=== PATIENT | female | born 1995 | race Caucasian/White ===

== ENCOUNTER 2017-12-25 09:35 | Emergency (ER) | payer SELFPAY ==
[2017-12-25 09:50] VITALS: TEMP 97.8
[2017-12-25] MEDS ORDERED: MORPHINE SULFATE INJ 10 MG/ML VIAL IV ONE (09:55)
[2017-12-25] MEDS ORDERED: ONDANSETRON INJ 4 MG/2 ML VIAL IV ONE (09:56)
--- NOTE | 2017-12-25 12:04 | ED.PDOC ---
History of Present Illness - General Chief Complaint: Abdominal Pain Stated Complaint: RUQ pain Time Seen by Provider: 12/25/17 09:55 Information Source: patient Exam Limitations: no limitations - History of Present Illness Abdominal Pain Onset Location: RUQ, epigastric Pain Radiation: no radiation Quality: moderate Timing/Duration: days - TWO DAYS Associated Symptoms: denies symptoms, back pain, chest pain Review of Systems - Review of Systems Constitutional: States: no symptoms reported EENTM: States: no symptoms reported Respiratory: States: no symptoms reported Cardiology: States: no symptoms reported Gastrointestinal/Abdominal: States: abdominal pain Musculoskeletal: States: no symptoms reported Skin: States: no symptoms reported Neurological: States: no symptoms reported Endocrine: States: no symptoms reported Hematologic/Lymphatic: States: no symptoms reported Past Medical History (General) - Patient Medical History Hx Stroke: No Hx Asthma: Yes Hx Congestive Heart Failure: No Hx Diabetes: No Surgical History: no surgical history - Vaccination History Hx Influenza Vaccination: No - Social History Hx Tobacco Use: Yes - Female History Patient is a Female of Child Bearing Age (10 -59 yrs old): Yes Family Medical History - Family History Mother Family History: Unknown Living Status: Unknown Physical Exam - Physical Exam General Appearance: Alert, Comfortable Eyes, Ears, Nose, Throat Exam: PERRL/EOMI, normal ENT inspection, TMs normal, pharynx normal Neck: non-tender, full range of motion, supple Respiratory: chest non-tender, lungs clear, normal breath sounds Cardiovascular/Chest: normal peripheral pulses, regular rate, rhythm, no edema, no gallop, no JVD Gastrointestinal/Abdominal: normal bowel sounds, non tender, soft, no organomegaly, no pulsatile mass, distended Rectal Exam: deferred Extremity: normal range of motion, non-tender, normal inspection 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 CBC, LIPASE, CMP ARE NORMAL. CT ABDOMEN: SMALL PERICARDIAC CYST, FATTY LIVER. Departure - Departure Clinical Impression: Abdominal pain Qualifiers: Abdominal location: right upper quadrant Qualified Code(s): R10.11 - Right upper quadrant pain Time of Disposition: 12:19 Disposition: Discharge to Home or Self Care Condition: Good Departure Forms: ED Discharge - Pt. Copy, Patient Portal Self Enrollment Diet: other - LOW FAT DIET Prescriptions: Tramadol HCl 50 mg PO Q6HR 5 Days tab Home Medications: Ambulatory Orders Albuterol Inhaler [Ventolin Hfa Inhaler] 1 puff INH PRN 12/25/17 Tramadol HCl 50 mg PO Q6HR 5 Days tab 12/25/17
--- NOTE | 2017-12-25 12:04 | CT ---
EXAM DESCRIPTION: CT ABDOMEN AND PELVIS WITH CONTRAST CLINICAL HISTORY: ABDOMINAL PAIN-RUP AND EPIGASTRIUM COMPARISON: None Available. TECHNIQUE: CT of the abdomen and pelvis are performed during IV bolus administration of 100 mL of Optiray 320. Oral contrast media is administered as well. FINDINGS: In the lower chest, the lung bases are clear. Heart size is normal. Density in the right cardiophrenic angle region measures 1.9 x [address] density measurements ranging from 7-26 Hounsfield units. This may be a pericardial cyst. A low density lymph node could have a similar appearance. MRI may be helpful to differentiate a cystic from a solid lesion. CT abdomen Mildly decreased density of the liver suggests mild fatty infiltration. Spleen is large measuring 15.2 cm on diagonal measurement. Otherwise the liver, pancreas, gallbladder, adrenal glands, stomach and kidneys are unremarkable in appearance. No inflammation around the pancreas. No renal stones or hydronephrosis. No bowel dilatation to suggest obstruction. No free air or free fluid. CT pelvis Appendix appears normal and extends posterior to the right colon to the lower right subhepatic space. No inflammation around the cecum or terminal ileum or sigmoid colon. Bladder and distal ureters are negative for stones. Normal enhancement of pelvic vessels. No inguinal or lower pelvic adenopathy. Uterus and ovaries appear normal. Bone window images are negative for fracture or lytic lesion. Coronal and sagittal reformatted images confirm the findings. Liver length of 23 cm is mildly increased. Splenic length is mildly increased at 13.5 cm. IMPRESSION: Hepatosplenomegaly with mild hepatic steatosis. Right paracardiac lesion, most likely cystic. See above. This exam was performed according to our departmental dose-optimization program, which includes automated exposure control, adjustment of the mA and/or kV according to patient size and/or use of iterative reconstruction technique. Total DLP equals 1518.77 mGycm. Electronically signed by: Dickson Peng MD 12/25/2017 12:03 PM CDT
[2017-12-25 12:58] VITALS: BP 146/91; O2SAT 100
== END 2017-12-25 12:33 | disposition home or self-care (01) ==
LOC: ER 09:35
DX: R10.11 Right upper quadrant pain (principal)
CPT/HCPCS: 36415; 74177; 80053; 81001; 83690; 84703; 85025; J2270; J2405

== ENCOUNTER → 2018-02-25 | Outpatient (CLI) | payer OTHER | LOC: LAB.O 16:45 | PROVIDERS: ATTEND General Practice | DX: Z00.00 Encounter for general adult medical examination without abnormal findings (principal); E66.01 Morbid (severe) obesity due to excess calories ==

== ENCOUNTER 2018-05-25 08:02 | Emergency (ER) | payer SELFPAY ==
[2018-05-25 08:10] VITALS: O2SAT 98
[2018-05-25] MEDS ORDERED: HYDROcodone 10MG/APAP 325MG 1 EA TAB ONE (08:37)
[2018-05-25] MEDS ORDERED: HYDROcodone 10MG/APAP 325MG 1 EA TAB PO ONE (08:44)
--- NOTE | 2018-05-25 09:55 | RAD ---
One view chest 2 view abdomen. Indication: ruq pain 3d Comparison: None. Impression: Heart size normal. Lungs clear. No free air. Bowel gas pattern nonspecific. No abnormal calcifications. No acute osseous abnormality. Electronically signed by: Simeon Deal MD 05/25/2018 9:54 AM CDT
[2018-05-25] MEDS ORDERED: CIPROFLOXACIN 500 MG TAB PO ONE (10:09)
[2018-05-25] MEDS ORDERED: cefTRIAXone SODIUM 1 GM VIAL IM ONE (10:09)
--- NOTE | 2018-05-25 10:21 | ED.PDOC ---
History of Present Illness - General Chief Complaint: Abdominal Pain Time Seen by Provider: 05/25/18 08:03 Source: patient Exam Limitations: no limitations - History of Present Illness Initial Comments: the patient is a 23-year-old female presented emergency room with progressive discomfort to the right upper quadrant and flank for the last 3 days. Mild nausea but no vomiting. No worse with oral intake. No fever. No definite urinary symptoms. She had a similar episode about [address] scan at that time was negative for any acute pathology. She does have right upper quadrant discomfort palpation as well as right-sided costovertebral angle tenderness. No shortness of breath. No cough. Timing/Duration: other - 3 days Severity: moderate Improving Factors: nothing Worsening Factors: eating, movement Associated Symptoms: loss of appetite, malaise Allergies/Adverse Reactions: Allergies NO KNOWN ALLERGY Allergy (Verified 12/25/17 09:51) Home Medications: Ambulatory Orders Albuterol Inhaler [Ventolin Hfa Inhaler] 1 puff INH PRN 12/25/17 Tramadol HCl 50 mg PO Q6HR 5 Days tab 12/25/17 Amoxicillin & Pot Clavulanate [Augmentin Tab] 875 mg PO BID #20 tab 05/25/18 Ciprofloxacin [Cipro] 500 mg PO BID #20 tab 05/25/18 Tramadol HCl 50 mg PO Q8HR PRN #20 tab 05/25/18 Review of Systems - Review of Systems Constitutional: States: malaise EENTM: States: no symptoms reported Respiratory: States: no symptoms reported Cardiology: States: no symptoms reported Gastrointestinal/Abdominal: States: nausea Genitourinary: States: pain Musculoskeletal: States: back pain Skin: States: no symptoms reported Neurological: States: no symptoms reported Endocrine: States: no symptoms reported All other Systems: No Change from Baseline Past Medical History (General) - Patient Medical History Hx Stroke: No Hx Asthma: Yes Hx Congestive Heart Failure: No Hx Diabetes: No Hx Cancer: No Hx Hepatitis C: No Surgical History: no surgical history - Vaccination History Hx Tetanus, Diphtheria Vaccination: Yes - 2017 Hx Influenza Vaccination: Yes Hx Pneumococcal Vaccination: No Immunizations Up to Date: No - Social History Hx Tobacco Use: No Hx Chewing Tobacco Use: No Hx Alcohol Use: No Hx Substance Use: No Hx Substance Use Treatment: No Hx Depression: No Feels Threatened In Home Enviroment: No Feels Threatened In a Relationship: No Hx Physical Abuse: No Hx Emotional Abuse: No Hx Suspected Abuse: No - Female History Patient is a Female of Child Bearing Age (10 -59 yrs old): Yes Patient : No Family Medical History - Family History Mother Family History: Unknown Living Status: Unknown Physical Exam - Physical Exam General Appearance: Alert, Comfortable, No apparent distress Eye Exam: bilateral normal Ears, Nose, Throat: hearing grossly normal, normal ENT inspection, normal pharynx Neck: full range of motion, supple Respiratory: lungs clear, normal breath sounds, no respiratory distress, no accessory muscle use Cardiovascular/Chest: normal peripheral pulses, regular rate, rhythm, no edema Peripheral Pulses: radial,right: 2+, radial,left: 2+, dorsalis pedis,right: 2+, dorsalis pedis,left: 2+ Gastrointestinal/Abdominal: soft, other - mild right upper quadrant discomfort to palpation Rectal Exam: deferred Back Exam: CVA tenderness (R) Extremity: normal range of motion, non-tender, normal inspection, no pedal edema , normal capillary refill 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 She does have a urinary tract infection so I believe she does have early pyelonephritis on the right. Urine will be cultured. The patient is going to receive double coverage. She received a dose of Rocephin and ciprofloxacin here. I'm going to place her on Augmentin and ciprofloxacin as an outpatient. She does also need to take an over-the- counter Pepcid daily while she is taking these medications to help prevent stomach upset. She needs to increase her fluid intake. She needs to follow back up with her primary care doctor later this week. She will be written for tramadol for as needed use for additional pain control and she can take Motrin as well as if needed. There is a possibility that she may be having some biliary colic in addition to the problems above. She had a CT scan of the abdomen and pelvis that was essentially negative 5 months ago. There is no elevation of liver function tests and her pain actually seems to be more posterior and lateral than would be expected with a gallbladder issue. If pain fails to improve with above measures then further evaluation of the gallbladder may be warranted. increasing fiber and water intake as well as reducing fat intake are recommended in general. ER warnings were given. - Results/Orders Results/Orders: Laboratory Tests 05/25/18 05/25/18 05/25/18 08:54 08:58 08:58 WBC 5.1 RBC 4.95 Hgb 13.6 Hct 41.4 MCV 83.6 MCH 27.4 MCHC 32.8 L RDW 14.5 Plt Count 195 MPV 10.1 Absolute Neuts (auto) 3.60 Absolute Lymphs (auto) 1.20 Absolute Monos (auto) 0.30 Absolute Eos (auto) 0.00 Absolute Basos (auto) 0.00 Neutrophils % 69.5 Lymphocytes % 23.2 Monocytes % 6.1 Eosinophils % 0.7 L Basophils % 0.5 Sodium 136 Potassium 3.9 Chloride 100 L Carbon Dioxide 30 Anion Gap 9.9 L BUN 11 Creatinine 0.64 BUN/Creatinine Ratio 17.2 Random Glucose 89 Serum Osmolality 270.8 L Lactic Acid Calcium 9.2 Total Bilirubin 0.5 AST 19 ALT 24 Alkaline Phosphatase 66 Creatine Kinase 86 CK-MB (CK-2) 0.9 CK-MB (CK-2) % Not Reportable Troponin I < 0.02 Serum Total Protein 7.6 Albumin 3.7 Globulin 3.9 H Albumin/Globulin Ratio 0.9 L Amylase 26 L Lipase 24 TSH 2.23 Urine Color Yellow Urine Appearance Clear Urine pH 7.0 Ur Specific [place] 1.015 Urine Protein Negative Urine Glucose (UA) Negative Urine Ketones Negative Urine Blood Negative Urine Nitrite Negative Urine Bilirubin Negative Urine Urobilinogen 0.2 Ur Leukocyte Esterase Small H Urine RBC 0 Urine WBC 5-10 H Ur Epithelial Cells 10-20 Urine Bacteria 4+ H Urine HCG, Qual 05/25/18 05/25/18 08:58 08:58 WBC RBC Hgb Hct MCV MCH MCHC RDW Plt Count MPV Absolute Neuts (auto) Absolute Lymphs (auto) Absolute Monos (auto) Absolute Eos (auto) Absolute Basos (auto) Neutrophils % Lymphocytes % Monocytes % Eosinophils % Basophils % Sodium Potassium Chloride Carbon Dioxide Anion Gap BUN Creatinine BUN/Creatinine Ratio Random Glucose Serum Osmolality Lactic Acid 0.9 Calcium Total Bilirubin AST ALT Alkaline Phosphatase Creatine Kinase CK-MB (CK-2) CK-MB (CK-2) % Troponin I Serum Total Protein Albumin Globulin Albumin/Globulin Ratio Amylase Lipase TSH Urine Color Urine Appearance Urine pH Ur Specific [place] Urine Protein Urine Glucose (UA) Urine Ketones Urine Blood Urine Nitrite Urine Bilirubin Urine Urobilinogen Ur Leukocyte Esterase Urine RBC Urine WBC Ur Epithelial Cells Urine Bacteria Urine HCG, Qual Negative acute abdominal series is negative for acute pathology. - EKG/XRAY/CT CT Ordered: No CT Interpretation Call Back: No Departure - Departure Clinical Impression: Pyelonephritis Disposition: Discharge to Home or Self Care Condition: Fair Departure Forms: ED Discharge - Pt. Copy, Patient Portal Self Enrollment Instructions: Urinary Tract Infection, Adult (DC) Diet: low fat, low cholesterol Activity: increase activity as tolerated Referrals: Newton Freeman MD [Primary Care Provider] - 1-5 Days Prescriptions: Tramadol HCl 50 mg PO Q8HR PRN #20 tab PRN Reason: Moderate Pain Amoxicillin & Pot Clavulanate [Augmentin Tab] 875 mg PO BID #20 tab Ciprofloxacin [Cipro] 500 mg PO BID #20 tab Home Medications: Ambulatory Orders Albuterol Inhaler [Ventolin Hfa Inhaler] 1 puff INH PRN 12/25/17 Tramadol HCl 50 mg PO Q6HR 5 Days tab 12/25/17 Amoxicillin & Pot Clavulanate [Augmentin Tab] 875 mg PO BID #20 tab 05/25/18 Ciprofloxacin [Cipro] 500 mg PO BID #20 tab 05/25/18 Tramadol HCl 50 mg PO Q8HR PRN #20 tab 05/25/18 Additional Instructions: the patient is a 23-year-old female presenting to the emergency room with right- sided abdominal and flank pain. She does have a urinary tract infection so I believe she does have early pyelonephritis on the right. Urine will be cultured. The patient is going to receive double coverage. She received a dose of Rocephin and ciprofloxacin here. I'm going to place her on Augmentin and ciprofloxacin as an outpatient. She does also need to take an over-the- counter Pepcid daily while she is taking these medications to help prevent stomach upset. She needs to increase her fluid intake. She needs to follow back up with her primary care doctor later this week. She will be written for tramadol for as needed use for additional pain control and she can take Motrin as well as if needed. There is a possibility that she may be having some biliary colic in addition to the problems above. She had a CT scan of the abdomen and pelvis that was essentially negative 5 months ago. There is no elevation of liver function tests and her pain actually seems to be more posterior and lateral than would be expected with a gallbladder issue. If pain fails to improve with above measures then further evaluation of the gallbladder may be warranted. increasing fiber and water intake as well as reducing fat intake are recommended in general. ER warnings were given.
[2018-05-25 10:39] VITALS: BP 134/76; TEMP 98.6
== END 2018-05-25 10:40 | disposition home or self-care (01) ==
LOC: ER 08:02
DX: N12 Tubulo-interstitial nephritis, not specified as acute or chronic (principal); J45.909 Unspecified asthma, uncomplicated
CPT/HCPCS: 36415; 74019; 80053; 81001; 81025; 82150; 82550; 82553; 83605; 83690; 84443; 84484; 85025; 87077; 87086; 87186; J0696

== ENCOUNTER 2018-08-25 07:41 | Emergency (ER) | payer SELFPAY ==
[2018-08-25 07:55] VITALS: TEMP 97.5
--- NOTE | 2018-08-25 08:02 | ED.PDOC ---
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 SIMILAR PAIN SHE HAS ASTHMA NOW ANY MOVEMENT MAKES THE PAIN WORSE HOWEVER NO LOSS OF BLADDER OR BOWEL CONTROL SHE HAS DIFFICULTY IN AMBULATING HER FAMILY HAD TO ASSIST HER TO COME HERE - History of Present Illness Timing/Duration: getting worse Severity: moderate Improving Factors: immobilization Worsening Factors: nothing Associated Symptoms: denies symptoms Allergies/Adverse Reactions: Allergies NO KNOWN ALLERGY Allergy (Verified 08/25/18 07:55) Home Medications: Ambulatory Orders Albuterol Inhaler [Ventolin Hfa Inhaler] 1 puff INH PRN 12/25/17 Methocarbamol [Robaxin] 750 mg PO Q8HRS #30 tab 08/25/18 Naproxen [Naprosyn] 500 mg PO Q8HRS #30 tab 08/25/18 Review of Systems - Review of Systems Constitutional: States: no symptoms reported EENTM: States: no symptoms reported Respiratory: States: no symptoms reported, wheezing Cardiology: States: no symptoms reported Gastrointestinal/Abdominal: States: no symptoms reported Genitourinary: States: no symptoms reported Musculoskeletal: States: no symptoms reported Skin: States: no symptoms reported Neurological: States: no symptoms reported Endocrine: States: no symptoms reported Hematologic/Lymphatic: States: no symptoms reported Past Medical History (General) - Patient Medical History Hx Stroke: No Hx Asthma: Yes Hx Congestive Heart Failure: No Hx Diabetes: No Hx Cancer: No Hx Hepatitis C: No - Vaccination History Hx Tetanus, Diphtheria Vaccination: Yes - 2017 Hx Influenza Vaccination: Yes Hx Pneumococcal Vaccination: No - Social History Hx Tobacco Use: No Hx Chewing Tobacco Use: No Hx Alcohol Use: No Hx Substance Use: No Hx Substance Use Treatment: No Hx Depression: No Hx Physical Abuse: No Hx Emotional Abuse: No Hx Suspected Abuse: No - Female History Patient : No Family Medical History - Family History Mother Family History: Unknown Living Status: Unknown Physical Exam - Physical Exam General Appearance: Alert, Anxious, Obvious distress Eye Exam: bilateral normal Ears, Nose, Throat: hearing grossly normal, normal ENT inspection Neck: non-tender, full range of motion, supple Respiratory: chest non-tender, lungs clear, normal breath sounds, no respiratory distress, no accessory muscle use Cardiovascular/Chest: normal peripheral pulses, regular rate, rhythm, no edema, no gallop, no JVD, no murmur Gastrointestinal/Abdominal: normal bowel sounds, non tender, soft Back Exam: muscle spasm Extremity: non-tender, normal inspection, no pedal edema 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, no motor/sensory deficits, alert, oriented x 3 Skin Exam: normal color, warm/dry Progress - Results/Orders Results/Orders: 8 48 am Patient reports not much releif from Morphine and Phenergan Will give Toradol & Norflex [address] LUMBAR SPINE REPORT SUGGEST A DISC PROTRUSION AT L5 S1 TO THE LEFT THIS WAS DISCUSSED WITH PATIENT SUGGEST REST ANALGESICS AND MUSCLE RELAXANTS 'FOLLOW UP WITH PCP IF SYMPTOMS PERSIST FOR FURTHER NEURO WORK UP Departure - Departure Clinical Impression: Lumbar back pain with radiculopathy affecting left lower extremity Time of Disposition: 09:47 Disposition: Discharge to Home or Self Care Condition: Good Departure Forms: ED Discharge - Pt. Copy, Patient Portal Self Enrollment Instructions: DI for Low Back Pain, DI for Back Pain With Sciatica Diet: resume usual diet Referrals: Newton Freeman MD [Primary Care Provider] - 1-2 Weeks Prescriptions: Methocarbamol [Robaxin] 750 mg PO Q8HRS #30 tab Naproxen [Naprosyn] 500 mg PO Q8HRS #30 tab Home Medications: Ambulatory Orders Albuterol Inhaler [Ventolin Hfa Inhaler] 1 puff INH PRN 12/25/17 Methocarbamol [Robaxin] 750 mg PO Q8HRS #30 tab 08/25/18 Naproxen [Naprosyn] 500 mg PO Q8HRS #30 tab 08/25/18
[2018-08-25] MEDS ORDERED: MORPHINE SULFATE INJ 10 MG/ML VIAL IM ONE (08:04)
[2018-08-25] MEDS ORDERED: PROMETHAZINE HCL INJ 25 MG/ML VIAL IM ONE (08:05)
[2018-08-25] MEDS ORDERED: ONDANSETRON INJ 4 MG/2 ML VIAL IV ONE (08:05)
[2018-08-25] MEDS ORDERED: ORPHENADRINE CITRATE 30 MG/ML AMP IM ONE (08:42)
[2018-08-25] MEDS ORDERED: KETOROLAC TROMETHAMINE INJ 60 MG/2 ML VIAL IM ONE (08:42)
--- NOTE | 2018-08-25 09:25 | CT ---
EXAM DESCRIPTION: Lumbar Spine CLINICAL HISTORY: 23 years, Female, severe back pain COMPARISON: December 25, 2017 TECHNIQUE: Lumbar CT with thin-section axial imaging with reconstructed MPR images reviewed as well. This exam was performed according to our departmental dose-optimization program, which includes automated exposure control, adjustment of the mA and/or kV according to patient size and/or use of iterative reconstruction technique. FINDINGS: CT lumbar spine is limited in image quality by the patient's large body size. Vertebral and disc height is maintained with normal alignment. This bony spinal canal is adequate. Disc contours in the thoracolumbar junction and upper lumbar spine are essentially normal and concave from T12-L1 through L3-4. A flat posterior contour at L4-5 is within the limits of normal with mild facet arthropathy. At L5-S1 very slight convexity of the disc contour is noted with essentially normal alignment. A tiny amount of prominence to the left of midline suggesting minimal left parasagittal disc protrusion but significant neural compression or a large herniation is not apparent. The bony posterior elements appear intact with no evidence of pars defect or severe facet arthropathy. IMPRESSION: 1. Essentially normal bony appearance of the lumbar spine with preserved vertebral and disc height and normal-appearing posterior elements. Adequate bony canal is noted. 2. Normal disc contours from T12-L1 through L4-5. 3. Very mild annular prominence L5-S1 with minimal asymmetric left-sided prominence suggesting a very small left parasagittal disc protrusion without definite neural compression. 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
[2018-08-25 10:07] VITALS: BP 101/66; O2SAT 100
== END 2018-08-25 10:07 | disposition home or self-care (01) ==
LOC: ER 07:41
DX: M54.16 Radiculopathy, lumbar region (principal); J45.909 Unspecified asthma, uncomplicated
CPT/HCPCS: 72131; J1885; J2270; J2360; J2550

== ENCOUNTER → 2018-09-14 | Outpatient (CLI) | payer MEDICAID ==
--- NOTE | 2018-09-15 13:21 | US ---
EXAM DESCRIPTION: Breast,Left: Ultrasound CLINICAL HISTORY: 23 yearsFemaleBREAST LUMP LEFT. Strong family history of breast cancer. COMPARISON: None. TECHNIQUE: Transcutaneous scanning of the left breast utilizing deleon-scale and Doppler modes. Scanning performed by the allergist/pediatric pulmonologist and Dr. Aparicio. FINDINGS: Scanning of the left breast 3 cm from the nipple 8:00 to 10:00 sectors. Predominantly fibroglandular elements with minimal fatty echotexture. No dominant solid mass or distinct cyst. No parenchymal edema or large calcifications. No overlying skin changes. No abnormal vascularity. Consider bilateral diagnostic digital breast tomosynthesis, with strong family history. IMPRESSION: BI-RADS CATEGORY: 0 - INCOMPLETE- Need additional imaging evaluation. FOLLOW-UP: Recall for additional imaging: Bilateral diagnostic digital breast tomosynthesis. The FINDINGS and the FOLLOW-UP plan were reviewed in person with the patient after the examination. Written communication explaining the IMPRESSION and FOLLOW-UP will be mailed to the patient and referring care provider. Electronically signed by: Kamari Aparicio MD 09/15/2018 1:19 PM [facility]
== END ==
LOC: US 14:18
PROVIDERS: ATTEND Nurse Practitioner Family
DX: N63.22 Unspecified lump in the left breast, upper inner quadrant (principal)

== ENCOUNTER → 2018-09-29 | Outpatient (CLI) | payer MEDICAID ==
--- NOTE | 2018-09-30 11:11 | MAM ---
EXAM DESCRIPTION: 3D Diagnostic, Bilateral: Digital Mammography CLINICAL HISTORY: 23 yearsFemaleABN FINDINGS . Palpable lump left breast. Negative on breast ultrasound. No personal history of breast cancer. Mother and maternal grandmother with breast cancer. Paternal grandmother with breast cancer. Mother's sister with breast cancer. Childbirth. Premenopausal. No HRT. Lifetime risk of developing breast cancer (Tyrer-Cuzick model) percentage is not calculated due to age of patient under 35 years old. COMPARISON: Targeted left breast ultrasound 09/14/2018... TECHNIQUE: Bilateral LM, MLO, and CC projection full-field images, digital mammographic tomosynthesis technique. Bilateral 2-D digital full-field MLO images. CAD not utilized. FINDINGS: The breast parenchymal density pattern is: Scattered areas of fibroglandular density. No skin thickening or nipple retraction skin marker on the anterior lower inner quadrant left breast where mass was palpated. No mammographic abnormality at this location. No focal, stellate mass or density, focal asymmetry , and no suspicious microcalcifications. IMPRESSION: Benign exam. BIRAD CATEGORY: 2 BENIGN FINDINGS. RECOMMENDATIONS: FOLLOW UP: Routine digital bilateral mammographic screening, one year interval from September 2018.. Consider genetic screening and MRI scan of the bilateral breasts without and with IV gadolinium. Please see below*. Written communication explaining the IMPRESSION and follow-up, will be mailed to the patient and referring health care provider. *According to the [employer], yearly mammograms are recommended starting at age 40 and continuing as long as a woman is in good health. Any breast change noted on a breast self-exam should be reported promptly to the patient's healthcare provider. Breast MRI is recommended for women with an approximately 20-25% or greater lifetime risk of breast cancer, including women with a strong family history of breast or ovarian cancer and women who have been treated for Hodgkin's disease. A negative mammographic report should not delay tissue diagnosis in patients with significant clinical history or physical findings. Extremely dense breast tissue limits the sensitivity of digital mammography. Electronically signed by: Kamari Aparicio MD 09/30/2018 11:08 AM STUDENT SERVICES COUNSELOR
== END ==
LOC: US 14:00
PROVIDERS: ATTEND Nurse Practitioner Family
DX: R92.8 Other abnormal and inconclusive findings on diagnostic imaging of breast (principal)
CPT/HCPCS: 77066; G0279

== ENCOUNTER 2018-10-06 22:27 | Emergency (ER) | payer MEDICAID ==
[2018-10-06 22:40] VITALS: TEMP 98
[2018-10-06] MEDS ORDERED: LIDOCAINE 1% W/ EPINEPHRINE 20 ML VIAL INJ ONE (22:46)
[2018-10-06] MEDS ORDERED: IODOFORM 1/4 INCH 1 EA BTTL TOP ONE (22:47)
[2018-10-06] MEDS ORDERED: CHLORHEXIDINE GLUCONATE 4 % 15 ML UD TOP ONE (22:50)
--- NOTE | 2018-10-06 23:13 | ED.PDOC ---
History of Present Illness - General Chief Complaint: Skin/Abrasion/Tear Stated Complaint: abcess on perineum Time Seen by Provider: 10/06/18 22:28 Source: patient Exam Limitations: no limitations - History of Present Illness Initial Comments: Patient presents with an abscess on the left perineal fold for three days. She says it started to leak blood and pus today. She has had an abscess before in the same area many years ago. No fevers. No other complaints. Timing/Duration: other - 3 days Severity: moderate Improving Factors: nothing Worsening Factors: nothing Associated Symptoms: denies symptoms Allergies/Adverse Reactions: Allergies NO KNOWN ALLERGY Allergy (Verified 08/25/18 07:55) Home Medications: Ambulatory Orders Albuterol Inhaler [Ventolin Hfa Inhaler] 1 puff INH PRN 12/25/17 Methocarbamol [Robaxin] 750 mg PO Q8HRS #30 tab 08/25/18 Naproxen [Naprosyn] 500 mg PO Q8HRS #30 tab 08/25/18 Sulfa/Trimeth 800/160 (Ds) Tab [Bactrim DS] 1 tablet PO BID #19 tab 10/06/18 Review of Systems - Review of Systems Constitutional: States: no symptoms reported EENTM: States: no symptoms reported Respiratory: States: no symptoms reported Cardiology: States: no symptoms reported Gastrointestinal/Abdominal: States: no symptoms reported Genitourinary: States: no symptoms reported Musculoskeletal: States: no symptoms reported Skin: States: see HPI Neurological: States: no symptoms reported Endocrine: States: no symptoms reported Hematologic/Lymphatic: States: no symptoms reported Past Medical History (General) - Patient Medical History Hx Seizures: No Hx Stroke: No Hx Dementia: No Hx Asthma: Yes Hx of COPD: No Hx Cardiac Disorders: No Hx Congestive Heart Failure: No Hx Pacemaker: No Hx Hypertension: No Hx Diabetes: No Hx Gastroesophageal Reflux: No Hx Renal Disease: No Hx Cancer: No Hx Hepatitis C: No Surgical History: no surgical history - Vaccination History Hx Tetanus, Diphtheria Vaccination: Yes - 2017 Hx Influenza Vaccination: Yes Hx Pneumococcal Vaccination: No - Social History Hx Tobacco Use: No Hx Chewing Tobacco Use: No Hx Alcohol Use: No Hx Substance Use: No Hx Substance Use Treatment: No Hx Depression: No Hx Physical Abuse: No Hx Emotional Abuse: No Hx Suspected Abuse: No - Female History Patient is a Female of Child Bearing Age (10 -59 yrs old): Yes Patient : No Family Medical History - Family History Mother Family History: Unknown Living Status: Unknown Physical Exam - Physical Exam General Appearance: Alert Respiratory: lungs clear, normal breath sounds Cardiovascular/Chest: normal peripheral pulses, regular rate, rhythm Gastrointestinal/Abdominal: normal bowel sounds, non tender, soft Skin Exam: other - 3 cm non-erythmatic abscess on left anterior perineal fold. TTP. Dried blood present. There is a central eschar from drainage. Progress - Progress Progress: 10/06/18 23:13 Area was prepped and draped in a sterile fashion. 6 cc of lidocaine with epinephrine injected at the circumference of the wound site and excellent local anesthesia obtained. #11 blade used to cut a 1 cm incision in the center of the abscess. small amount of blood and no prurulence obtained. Loculations broken up with curved hemostats. Culture obtained. 30 cc of sterile NS used to irrigate the abscess. Packed with approximately 10 cm of sterile strip gauze. Area was clean, dry, and hemostatic upon completion. Patient tolerated procedure well. RX for Bactrim DS bid x 10 days given. First dose given here. Patient has follow up appointment with her pcp early next week and she was encouraged to keep the appointment for a wound check. Care instructions given. E.R. warnings given. Questions were elicited and answered. Patient voiced understanding and agreement with the plan. Departure - Departure Clinical Impression: Abscess Disposition: Discharge to Home or Self Care Condition: Good Departure Forms: ED Discharge - Pt. Copy, Patient Portal Self Enrollment Diet: resume usual diet Activity: increase activity as tolerated Referrals: Newton Freeman MD [Primary Care Provider] - 1-2 Weeks Prescriptions: Sulfa/Trimeth 800/160 (Ds) Tab [Bactrim DS] 1 tablet PO BID #19 tab Home Medications: Ambulatory Orders Albuterol Inhaler [Ventolin Hfa Inhaler] 1 puff INH PRN 12/25/17 Methocarbamol [Robaxin] 750 mg PO Q8HRS #30 tab 08/25/18 Naproxen [Naprosyn] 500 mg PO Q8HRS #30 tab 08/25/18 Sulfa/Trimeth 800/160 (Ds) Tab [Bactrim DS] 1 tablet PO BID #19 tab 10/06/18 Additional Instructions: See your regular doctor next week to check healing of the wound. Take your prescription as directed. Return to the E.R. for increasing wound size, pus, or increasing pain. Return for a temperature above 100.3.
[2018-10-06] MEDS ORDERED: SULFA/TRIMETH 800/160 (DS) TAB 1 EA TAB PO ONE (23:17)
[2018-10-06 23:27] VITALS: BP 157/84; O2SAT 97
== END 2018-10-06 23:27 | disposition home or self-care (01) ==
LOC: ER 22:27
DX: L02.215 Cutaneous abscess of perineum (principal); J45.909 Unspecified asthma, uncomplicated

== ENCOUNTER 2018-10-12 08:59 | Emergency (ER) | payer SELFPAY ==
--- NOTE | 2018-10-12 09:16 | ED.PDOC ---
History of Present Illness - General Chief Complaint: Abdominal Pain Stated Complaint: N/V/D;RUQ pain Time Seen by Provider: 10/12/18 09:01 Information Source: patient Exam Limitations: no limitations - History of Present Illness Initial Comments: Tameka Velez 23 y/o female stated that she had multiple episodes of N/V/D since last night and sharp RUQ pain .She stated had multiple family members ill with same symptoms.Had CT-abd/p-12/25/2017-result showed hepatosplenomegaly,hepatic steatosis;right paracardiac cyst Abdominal Pain Onset Location: RUQ Pain Radiation: no radiation Quality: moderate, sharpness Timing/Duration: 7-24 hours Improving Factors: nothing Worsening Factors: nothing Associated Symptoms: diarrhea, nausea/vomiting Review of Systems - Review of Systems Constitutional: States: no symptoms reported EENTM: States: no symptoms reported Respiratory: States: no symptoms reported Cardiology: States: no symptoms reported Gastrointestinal/Abdominal: States: see HPI Genitourinary: States: no symptoms reported All other Systems: Reviewed and Negative, No Change from Baseline Past Medical History (General) - Patient Medical History Hx Seizures: No Hx Stroke: No Hx Dementia: No Hx Asthma: Yes Hx of COPD: No Hx Cardiac Disorders: No Hx Congestive Heart Failure: No Hx Pacemaker: No Hx Hypertension: No Hx Diabetes: No Hx Gastroesophageal Reflux: No Hx Renal Disease: No Hx Cancer: No Hx Hepatitis C: No Surgical History: no surgical history - Vaccination History Hx Tetanus, Diphtheria Vaccination: Yes - 2017 Hx Influenza Vaccination: Yes Hx Pneumococcal Vaccination: No - Social History Hx Tobacco Use: No Hx Chewing Tobacco Use: No Hx Alcohol Use: No Hx Substance Use: No Hx Substance Use Treatment: No Hx Depression: No Hx Physical Abuse: No Hx Emotional Abuse: No Hx Suspected Abuse: No - Female History Patient is a Female of Child Bearing Age (10 -59 yrs old): Yes Hx Last Menstrual Period: 09/11/18 Patient : No Family Medical History - Family History Mother Family History: Unknown Living Status: Unknown Physical Exam - Physical Exam General Appearance: Alert, Comfortable, No apparent distress Eyes, Ears, Nose, Throat Exam: normal ENT inspection, pharynx normal Neck: non-tender, supple, normal inspection Respiratory: chest non-tender, lungs clear, normal breath sounds Cardiovascular/Chest: normal peripheral pulses, regular rate, rhythm, no murmur Peripheral Pulses: No deficit Gastrointestinal/Abdominal: soft, tenderness - ruq no [place] sign;no peritoneal signs Back Exam: no CVA tenderness, no vertebral tenderness Extremity: no pedal edema, no calf tenderness Neurologic: alert, oriented x 3 Skin Exam: normal color, warm/dry Lymphatic: no adenopathy Progress - Progress Progress: 10/12/18 10:11 Vital Signs - 8 hr 10/12/18 09:14 Temperature 98.9 F Pulse Rate [ 93 H Right Radial] Respiratory 20 Rate Blood Pressure 120/77 [Right Arm] O2 Sat by Pulse 97 Oximetry 10/12/18 10:59 Unable to give stool sample ;No N/V/D since she was in ER - Results/Orders Results/Orders: 10/12/18 09:16 IV Care:Saline Lock per Protoc QSHIFT HCG,QUALITATIVE URINE Stat URINALYSIS Stat 10/12/18 09:47 CLOSTRIDIUM DIFFICILE AG/TOXIN Urgent Laboratory Results - last 24 hr 10/12/18 10/12/18 09:30 09:30 WBC 7.0 RBC 5.09 Hgb 14.2 Hct 41.8 MCV 82.3 MCH 27.8 MCHC 33.8 RDW 14.2 Plt Count 203 MPV 9.7 Absolute Neuts (auto) 6.20 Absolute Lymphs (auto) 0.40 L Absolute Monos (auto) 0.30 Absolute Eos (auto) 0.00 Absolute Basos (auto) 0.00 Neutrophils % 88.5 H Lymphocytes % 6.3 L Monocytes % 4.5 Eosinophils % 0.5 L Basophils % 0.2 Sodium 136 Potassium 4.0 Chloride 103 Carbon Dioxide 24 Anion Gap 13.0 BUN 14 Creatinine 0.71 BUN/Creatinine Ratio 19.7 Random Glucose 106 H Serum Osmolality 272.8 L Calcium 8.8 Total Bilirubin 0.6 AST 17 ALT 25 Alkaline Phosphatase 68 Serum Total Protein 7.9 Albumin 3.7 Globulin 4.2 H Albumin/Globulin Ratio 0.9 L Discuss all test with patient Departure - Departure Clinical Impression: Nausea vomiting and diarrhea Abdominal pain Qualifiers: Abdominal location: right upper quadrant Qualified Code(s): R10.11 - Right upper quadrant pain Time of Disposition: 11:01 Disposition: Discharge to Home or Self Care Condition: Fair Departure Forms: ED Discharge - Pt. Copy, Patient Portal Self Enrollment Instructions: Viral Gastroenteritis, Viral Gastroenteritis, Adult (DC), [place] Diet Referrals: [place],Newton Larry, MD [Primary Care Provider] - 1-2 Weeks Prescriptions: Promethazine W/Codeine Syr [Phenergan With Codeine Syrup] 10 ml PO TID PRN #120 ml PRN Reason: Pain Home Medications: Ambulatory Orders Albuterol Inhaler [Ventolin Hfa Inhaler] 1 puff INH PRN 12/25/17 Etonogestrel [Nexplanon] 68 mg TD DAILY 10/12/18 Phentermine HCl 37.5 mg PO DAILY 10/12/18 Promethazine W/Codeine Syr [Phenergan With Codeine Syrup] 10 ml PO TID PRN #120 ml 10/12/18 Additional Instructions: AVOID GREASY/SPICY FOODS UNTIL BETTER;Return to ER as needed;follow up with primary Md 14 Oct 2018 for recheck as needed
[2018-10-12] MEDS ORDERED: SODIUM CHLORIDE 0.9% 1000ML 1,000 ML IVS ONE (09:22)
[2018-10-12] MEDS ORDERED: PROCHLORPERAZINE INJ 10 MG/2 ML VIAL IV ONE (09:22)
[2018-10-12] MEDS ORDERED: MORPHINE SULFATE INJ 10 MG/ML VIAL IV ONE (09:22)
[2018-10-12 11:19] VITALS: BP 112/90; TEMP 98.8; O2SAT 98
== END 2018-10-12 11:25 | disposition home or self-care (01) ==
LOC: ER 08:59
DX: R11.2 Nausea with vomiting, unspecified (principal); R19.7 Diarrhea, unspecified; R10.11 Right upper quadrant pain; J45.909 Unspecified asthma, uncomplicated
CPT/HCPCS: 80053; 85025; J0780; J2270; J7030

== ENCOUNTER 2020-03-08 05:58 | Emergency (ER) | payer OTHER ==
--- NOTE | 2020-03-08 06:40 | ED.PDOC ---
History of Present Illness - History of Present Illness Initial Comments: 25 F EGA 8w1d by LMP presents to ED c/o vaginal bleeding in with clots. Pt has been having mild vaginal spotting for 4 days but tonight developed suprapubic abdominal pain and pelvic cramping with increased vaginal bleeding and passage of clots. Pt endorses associated nausea without vomiting. Denies h/o similar sx's. No alleviating/aggravating factors. Denies CP, SOB, cough, vomiting, diarrhea, dysuria, vaginal discharge, f/c. Pt is without any further complaints. LMP: 01/11/2020 <Rangel Cadena - Last Filed: 03/08/20 06:46> <[place] - Last Filed: 03/08/20 09:46> - General Chief Complaint: RN ENTEROSTOMAL Problem Stated Complaint: vaginal bleeding, Pg Time Seen by Provider: 03/08/20 06:10 - History of Present Illness Allergies/Adverse Reactions: Allergies NO KNOWN ALLERGY Allergy (Verified 10/12/18 09:24) Home Medications: Ambulatory Orders Albuterol Inhaler [Ventolin Hfa Inhaler] 1 puff INH PRN 12/25/17 Etonogestrel [Nexplanon] 68 mg TD DAILY 10/12/18 Phentermine HCl 37.5 mg PO DAILY 10/12/18 Promethazine W/Codeine Syr [Phenergan With Codeine Syrup] 10 ml PO TID PRN #120 ml 10/12/18 Acetaminophen [Tylenol] 650 mg PO Q6H PRN #30 tab 03/08/20 Review of Systems - Review of Systems Constitutional: Denies: chills, fever EENTM: Denies: nose congestion, throat pain Respiratory: Denies: cough, short of breath Cardiology: Denies: chest pain, edema, palpitations Gastrointestinal/Abdominal: States: abdominal pain, nausea. Denies: diarrhea, vomiting Genitourinary: States: other - vaginal bleeding with clots, denies vaginal discharge. Denies: dysuria, frequency Musculoskeletal: Denies: back pain, muscle pain Skin: Denies: change in color, lesions, rash Neurological: States: other - denies dizziness/lightheadedness. Denies: heada dorothy Hematologic/Lymphatic: Denies: easy bleeding <Rangel Cadena - Last Filed: 03/08/20 06:46> Past Medical History (General) - Patient Medical History Hx Seizures: No Hx Stroke: No Hx Dementia: No Hx Asthma: Yes Hx of COPD: No Hx Cardiac Disorders: No Hx Congestive Heart Failure: No Hx Pacemaker: No Hx Hypertension: No Hx Diabetes: No Hx Gastroesophageal Reflux: No Hx Renal Disease: No Hx Cancer: No Hx Hepatitis C: No Hx MRSA: No - Vaccination History Hx Tetanus, Diphtheria Vaccination: Yes - 2017 Hx Influenza Vaccination: Yes Hx Pneumococcal Vaccination: No - Social History Hx Tobacco Use: No Hx Chewing Tobacco Use: No Hx Alcohol Use: No Hx Substance Use: No Hx Substance Use Treatment: No Hx Depression: No Hx Physical Abuse: No Hx Emotional Abuse: No Hx Suspected Abuse: No - Female History Hx Last Menstrual Period: 09/11/18 Patient : No <Rangel Cadena - Last Filed: 03/08/20 06:46> Family Medical History - Family History Mother Family History: Unknown Living Status: Unknown <Rangel Cadena - Last Filed: 03/08/20 06:46> Physical Exam - Physical Exam General Appearance: Alert, Comfortable, No apparent distress, Other - Non-toxic. Morbid BMI. Eye Exam: bilateral normal Ears, Nose, Throat: normal ENT inspection Neck: non-tender, full range of motion, supple Respiratory: lungs clear, normal breath sounds, no respiratory distress, no accessory muscle use Cardiovascular/Chest: normal peripheral pulses, regular rate, rhythm, no edema, no gallop, no JVD, no murmur Gastrointestinal/Abdominal: normal bowel sounds, non tender, soft, other - habitus limits examination, Genitourinary exam pending Rectal Exam: deferred Extremity: no pedal edema Neurologic: alert, normal mood/affect, oriented x 3 Skin Exam: normal color, warm/dry, other - no rash <Rangel Cadena - Last Filed: 03/08/20 06:46> Progress - Progress Progress: Presents for likely miscarriage in first trimester . I will perform labs, imaging, provide appropriate pharmacotherapy, and continue to monitor/reassess. Dispo will depend on lab and imaging results along with overall course in ED; however, discharge home is expected with powerhouse electrician f/u, education, and possible rx. <Rangel Cadena - Last Filed: 03/08/20 06:46> - Progress Progress: 03/08/20 09:34 Laboratory Tests 03/08/20 03/08/20 03/08/20 06:54 06:54 06:54 WBC 4.8 RBC 4.43 Hgb 12.1 Hct 36.1 MCV 81.3 MCH 27.3 MCHC 33.6 RDW 15.4 H Plt Count 167 MPV 9.7 Absolute Neuts (auto) 3.20 Absolute Lymphs (auto) 1.20 Absolute Monos (auto) 0.30 Absolute Eos (auto) 0.00 Absolute Basos (auto) 0.00 Neutrophils % 67.9 Lymphocytes % 24.6 Monocytes % 6.2 Eosinophils % 0.9 L Basophils % 0.4 Sodium 137 Potassium 3.7 Chloride 104 Carbon Dioxide 23 Anion Gap 13.7 BUN < 5 L Creatinine 0.53 L BUN/Creatinine Ratio 9.4 L Random Glucose 87 Serum Osmolality 270.4 L Calcium 8.4 Total Bilirubin 0.4 AST 24 ALT 39 Alkaline Phosphatase 54 Serum Total Protein 6.9 Albumin 3.3 Globulin 3.6 H Albumin/Globulin Ratio 0.9 L Beta HCG, Quant 74064.0 H Urine Color Urine Appearance Urine pH Ur Specific [place] Urine Protein Urine Glucose (UA) Urine Ketones Urine Blood Urine Nitrite Urine Bilirubin Urine Urobilinogen Ur Leukocyte Esterase Urine RBC Urine WBC Ur Epithelial Cells Urine Bacteria Urine Mucus Patient ABO/Rh 03/08/20 03/08/20 06:54 06:56 WBC RBC Hgb Hct MCV MCH MCHC RDW Plt Count MPV Absolute Neuts (auto) Absolute Lymphs (auto) Absolute Monos (auto) Absolute Eos (auto) Absolute Basos (auto) Neutrophils % Lymphocytes % Monocytes % Eosinophils % Basophils % Sodium Potassium Chloride Carbon Dioxide Anion Gap BUN Creatinine BUN/Creatinine Ratio Random Glucose Serum Osmolality Calcium Total Bilirubin AST ALT Alkaline Phosphatase Serum Total Protein Albumin Globulin Albumin/Globulin Ratio Beta HCG, Quant Urine Color Yellow Urine Appearance Clear Urine pH 7.0 Ur Specific [place] 1.025 Urine Protein Negative Urine Glucose (UA) Negative Urine Ketones Trace Urine Blood Large H Urine Nitrite Negative Urine Bilirubin Negative Urine Urobilinogen 0.2 Ur Leukocyte Esterase Negative Urine RBC 5-10 H Urine WBC 3-5 H Ur Epithelial Cells 10-20 Urine Bacteria 2+ H Urine Mucus Trace Patient ABO/Rh O POSITIVE EXAM DESCRIPTION: OB ,Early (0-14wks) CLINICAL HISTORY: vaginal bleeding in first trimester COMPARISON: None. TECHNIQUE: Real-time sonographic images of the pelvis are obtained transvaginally. FINDINGS: The uterus measures 10.7 x 5.1 x 7.7 cm. The uterus is normal positioning. Gestational sac surrounded by echogenic endometrium in the right uterine fundus endometrium is seen. Embryo is identified with crown-rump length of 7 mm. Small yolk sac is identified. heart rate is 148 bpm. Estimated gestational age by ultrasound is 6 weeks 4 days. MIKE by ultrasound October 28, 2020. MIKE by LMP October 17, 2020. A second, separate gestational sac surrounded by echogenic endometrium in the left uterine fundus contains an embryo. [place]-rump length measures 10 mm. Estimated gestational age by ultrasound of 7 weeks 0 days. MIKE by ultrasound October 25, 2020. MIKE by LMP October 17, 2020. heart rate is 145 bpm. A yolk sac is identified. Small hypoechoic area adjacent to the right gestational sac measures 12 x 3 x 7 mm. The right ovary measures 3.5 x 4.0 x 3.5cm. Volume 26 cc. Anechoic cyst on the right ovary measures 2.8 x 3.4 x 2.5 cm. The left ovary measures 2.9 x 2.3 x 2.2cm. Volume is 8 cc. Small hypoechoic cyst of the left ovary measures less than 1 cm. Both ovaries show normal vascular flow. No abnormal adnexal mass or fluid collection is seen. IMPRESSION: Twin intrauterine gestation with evidence of diamniotic, dichorionic gestation.. Small subchorionic hemorrhage or implantation bleed associated with the left, fetus B. heart rate is seen in both embryos. Estimated gestational age by ultrasound is 6 weeks 4 days and 7 weeks 0 days. Electronically signed by: Bruce Humphreys MD 03/08/2020 9:09 AM CDT - 5275 A/P-Threatened AB Twin Gestational -d/c follow up OBGYN repeat BHCG in 48 hours tylenol for pain <[place] - Last Filed: 03/08/20 09:46> Departure <Rangel Cadena - Last Filed: 03/08/20 06:46> - Departure Time of Disposition: 09:43 <[place] - Last Filed: 03/08/20 09:46> - Departure Clinical Impression: Threatened , Vaginal bleeding Twin gestation in first trimester Qualifiers: Multiple gestation type: unspecified Qualified Code(s): O30.001 - Twin , unspecified number of placenta and unspecified number of amniotic sacs, first trimester Subchorionic hemorrhage in first trimester Qualifiers: Fetus number: fetus 2 of multiple gestation Qualified Code(s): O41.8X12 - Other specified disorders of amniotic fluid and membranes, first trimester, fetus 2; O46.8X1 - Other antepartum hemorrhage, first trimester Disposition: Discharge to Home or Self Care Condition: Good Departure Forms: ED Discharge - Pt. Copy, Patient Portal Self Enrollment Referrals: Newton Freeman MD [Primary Care Provider] - 1-2 Days (Repeat BHCG in 48 hours) Prescriptions: Acetaminophen [Tylenol] 650 mg PO Q6H PRN #30 tab PRN Reason: Pain Home Medications: Ambulatory Orders Albuterol Inhaler [Ventolin Hfa Inhaler] 1 puff INH PRN 12/25/17 Etonogestrel [Nexplanon] 68 mg TD DAILY 10/12/18 Phentermine HCl 37.5 mg PO DAILY 10/12/18 Promethazine W/Codeine Syr [Phenergan With Codeine Syrup] 10 ml PO TID PRN #120 ml 10/12/18 Acetaminophen [Tylenol] 650 mg PO Q6H PRN #30 tab 03/08/20
[2020-03-08] MEDS ORDERED: ACETAMINOPHEN 500 MG TAB ONE (07:34)
[2020-03-08] MEDS: ACETAMINOPHEN 500 MG TAB PO ONE (07:35)
--- NOTE | 2020-03-08 09:11 | US ---
EXAM DESCRIPTION: OB ,Early (0-14wks) CLINICAL HISTORY: vaginal bleeding in first trimester COMPARISON: None. TECHNIQUE: Real-time sonographic images of the pelvis are obtained transvaginally. FINDINGS: The uterus measures 10.7 x 5.1 x 7.7 cm. The uterus is normal positioning. Gestational sac surrounded by echogenic endometrium in the right uterine fundus endometrium is seen. Embryo is identified with crown-rump length of 7 mm. Small yolk sac is identified. heart rate is 148 bpm. Estimated gestational age by ultrasound is 6 weeks 4 days. MIKE by ultrasound October 28, 2020. MIKE by LMP October 17, 2020. A second, separate gestational sac surrounded by echogenic endometrium in the left uterine fundus contains an embryo. [place]-rump length measures 10 mm. Estimated gestational age by ultrasound of 7 weeks 0 days. MIKE by ultrasound October 25, 2020. MIKE by LMP October 17, 2020. heart rate is 145 bpm. A yolk sac is identified. Small hypoechoic area adjacent to the right gestational sac measures 12 x 3 x 7 mm. The right ovary measures 3.5 x 4.0 x 3.5cm. Volume 26 cc. Anechoic cyst on the right ovary measures 2.8 x 3.4 x 2.5 cm. The left ovary measures 2.9 x 2.3 x 2.2cm. Volume is 8 cc. Small hypoechoic cyst of the left ovary measures less than 1 cm. Both ovaries show normal vascular flow. No abnormal adnexal mass or fluid collection is seen. IMPRESSION: Twin intrauterine gestation with evidence of diamniotic, dichorionic gestation.. Small subchorionic hemorrhage or implantation bleed associated with the left, fetus B. heart rate is seen in both embryos. Estimated gestational age by ultrasound is 6 weeks 4 days and 7 weeks 0 days. Electronically signed by: Bruce Humphreys MD 03/08/2020 9:09 AM CDT
[2020-03-08 09:36] VITALS: TEMP 98.4
[2020-03-08 09:54] VITALS: BP 132/79; O2SAT 98
== END 2020-03-08 09:53 | disposition home or self-care (01) ==
LOC: ER 05:58
DX: O20.0 Threatened abortion (principal); O30.001 Twin pregnancy, unspecified number of placenta and unspecified number of amniotic sacs, first trimester; O41.8X12 Other specified disorders of amniotic fluid and membranes, first trimester, fetus 2; O46.8X1 Other antepartum hemorrhage, first trimester; Z3A.01 Less than 8 weeks gestation of pregnancy

== ENCOUNTER → 2020-05-14 | Outpatient (CLI) | payer OTHER | LOC: LAB.O 08:55 | PROVIDERS: ATTEND Obstetrics & Gynecology | DX: O30.042 Twin pregnancy, dichorionic/diamniotic, second trimester (principal); Z3A.00 Weeks of gestation of pregnancy not specified ==

== ENCOUNTER → 2020-06-29 | Outpatient (CLI) | payer OTHER | LOC: YCFC.O 12:42 | PROVIDERS: ATTEND Nurse Practitioner Family | DX: Z20.828 Contact with and (suspected) exposure to other viral communicable diseases (principal) ==

== ENCOUNTER 2020-07-17 07:19 | Emergency (ER) | payer OTHER ==
[2020-07-17] MEDS ORDERED: PENICILLIN POTASSIUM IVPB ONE ×2 (07:39→08:13)
[2020-07-17] MEDS ORDERED: SODIUM CHLORIDE 0.9% IVPB ONE ×3 (07:39→08:21)
[2020-07-17] MEDS ORDERED: BETAMETHASONE ACETATE/BETAMETH 6 MG/ML VIAL IM ONE ×2 (08:13→08:48)
[2020-07-17] MEDS ORDERED: MAGNESIUM SULFATE IVPB ONE (08:21)
[2020-07-17] MEDS ORDERED: fentaNYL CITRATE INJ 50 MCG/ML 2 ML AMP IV ONE (08:39)
--- NOTE | 2020-07-17 08:55 | US ---
EXAM DESCRIPTION: OB ,Limited: ULTRASOUND. CLINICAL HISTORY: 25 years Female vag bleeding. Twin . COMPARISON: None Available. TECHNIQUE: Transcutaneous scanning: Cole-scale and Doppler modes.. Technically difficult study due to large patient body habitus and combative patient. FINDINGS: Baby A is seen low in the pelvis with the thorax abutting the urinary bladder in breech presentation. Positive heart tones 132 bpm. Decreased body movement. Low fluid. Placenta not seen. Baby B more superior in the uterus with movement. Heart not visualized. Placenta partially visualized. Presentation unknown. IMPRESSION: Extremely limited study in this twin . Please see details above. Baby A is low in the pelvis, breech, decreased body movement and heart tones. Baby B upper uterus, presentation unknown, heart not seen but body motion visualized. Electronically signed by: Kamari Aparicio MD 07/17/2020 8:53 AM CROP RESEARCH SCIENTIST
--- NOTE | 2020-07-17 11:03 | ED.PDOC ---
History of Present Illness - General Chief Complaint: [employer] Problem Stated Complaint: possible early labor Time Seen by Provider: 07/17/20 07:22 Source: patient, RN notes reviewed, Vital Signs reviewed Exam Limitations: no limitations - History of Present Illness Initial Comments: 25 female at 24 wga comes in with 5 hours of contractions, and vaginal spotting. States her has been unremarkable up to this point. No recent illness, no fever, no cough, no dysuria. Allergies/Adverse Reactions: Allergies NO KNOWN ALLERGY Allergy (Verified 07/17/20 08:32) Home Medications: Ambulatory Orders Albuterol Inhaler [Ventolin Hfa Inhaler] 1 puff INH PRN 12/25/17 Etonogestrel [Nexplanon] 68 mg TD DAILY 10/12/18 Phentermine HCl 37.5 mg PO DAILY 10/12/18 Promethazine W/Codeine Syr [Phenergan With Codeine Syrup] 10 ml PO TID PRN #120 ml 10/12/18 Acetaminophen [Tylenol] 650 mg PO Q6H PRN #30 tab 03/08/20 Review of Systems - Review of Systems Constitutional: Denies: chills, fever EENTM: Denies: blurred vision, double vision, mouth swelling Respiratory: Denies: cough, short of breath Cardiology: Denies: chest pain Gastrointestinal/Abdominal: States: abdominal pain, nausea Genitourinary: States: discharge. Denies: dysuria, frequency, hematuria Musculoskeletal: States: back pain. Denies: muscle pain Skin: Denies: rash Neurological: Denies: headache, numbness, paresthesia Endocrine: Denies: unexplained weight gain, unexplained weight loss Hematologic/Lymphatic: Denies: blood clots, easy bleeding, easy bruising Past Medical History (General) - Patient Medical History Hx Seizures: No Hx Stroke: No Hx Dementia: No Hx Asthma: Yes Hx of COPD: No Hx Cardiac Disorders: No Hx Congestive Heart Failure: No Hx Pacemaker: No Hx Hypertension: No Hx Thyroid Disease: No Hx Diabetes: No Hx Gastroesophageal Reflux: No Hx Renal Disease: No Hx Cancer: No Hx of HIV: No Hx Hepatitis C: No Hx MRSA: No Surgical History: no surgical history - Vaccination History Hx Tetanus, Diphtheria Vaccination: Yes - 2017 Hx Influenza Vaccination: Yes Hx Pneumococcal Vaccination: No - Social History Hx Tobacco Use: No Hx Chewing Tobacco Use: No Hx Alcohol Use: No Hx Substance Use: No Hx Substance Use Treatment: No Hx Depression: No Hx Physical Abuse: No Hx Emotional Abuse: No Hx Suspected Abuse: No - Activities of Daily Living Hospice Agency (if applicable):: None - Female History Patient is a Female of Child Bearing Age (10 -59 yrs old): Yes Hx Last Menstrual Period: 03/08/20 Patient : Yes - 26 wks Family Medical History - Family History Mother Family History: Unknown Living Status: Unknown Physical Exam - Physical Exam General Appearance: Alert, Anxious, Obese, Well Developed, Well Groomed, Well Hydrated, Well Nourished Eyes, Ears, Nose, Throat Exam: normal ENT inspection Neck: non-tender, full range of motion, supple, normal inspection Cardiovascular/Respiratory: regular rate, rhythm, no M/R/G, normal peripheral pulses, no JVD, normal breath sounds Gastrointestinal/Abdominal: normal bowel sounds, non tender, soft Rectal Exam: deferred Pelvic Exam: other - uterus measure 25 wga. Sterile vaginal exam shows 2 cm dilated, 90% effacement, station 0 Back Exam: normal inspection Extremity: normal range of motion, non-tender, normal inspection Neurologic: no motor/sensory deficits, alert, normal mood/affect, oriented x 3 Skin Exam: normal color, warm/dry Progress - Progress Progress: 07/17/20 12:38 PCn, betamethasone, magnesium sulfate 6 grams were ordered. Betamethasone was given, but no other medication given prior to delivery. 25y/o now experienced on 07/17/20 @ baby A/girl delivered 850, baby b delivered 920, placenta delivered 930. Baby A infant's head was delivered in a controlled manner. The OP andnares were then (bulb, DeLee) suctioned on the perineum. Amniotic fluid was (clear, mec stained). No nuchal cord was noted. The infant's body was then delivered in the usual manner without difficulty. The cord was clamped and cut. The was handed to the nurse in attendance. following delivery the umbilical cord was disconnected from the placenta. Baby B/boy was delivered breech, Amniotic fluid was (clear, mec stained). No nuchal cord was noted. The 's body was then delivered in the usual manner without difficulty. The cord was clamped and cut. The infant was handed to the nurse in attendance. The placenta delivered and uterine massage for hemostasis. EBL= 400 ml.The cervix and vagina were inspected for lacs and none were noted. The A/B Apgars 4 and 2 and weight unknown. Babies were resuscitated, after one hour of resuscitation, infants demised. - Consult/PCP Time Called: 07:30 Consult/PCP: discussed with ob who recommends transfer to [place] if in labor Departure - Departure Clinical Impression: COVID-19 labor in third trimester with delivery Qualifiers: Fetus number: fetus 2 of multiple gestation Qualified Code(s): O60.14X2 - labor third trimester with delivery third trimester, fetus 2 Disposition: Transfer to Hospital Departure Forms: ED Discharge - Pt. Copy, Patient Portal Self Enrollment Referrals: Stefani Faria NP [Primary Care Provider] - 1-2 Weeks Home Medications: Ambulatory Orders Albuterol Inhaler [Ventolin Hfa Inhaler] 1 puff INH PRN 12/25/17 Etonogestrel [Nexplanon] 68 mg TD DAILY 10/12/18 Phentermine HCl 37.5 mg PO DAILY 10/12/18 Promethazine W/Codeine Syr [Phenergan With Codeine Syrup] 10 ml PO TID PRN #120 ml 10/12/18 Acetaminophen [Tylenol] 650 mg PO Q6H PRN #30 tab 03/08/20 Transfer to Outside Facility - Transfer Information Decision to Transfer Date: 07/17/20 Decision to Transfer Time: 08:00 Reason for Transfer: specialized care not available
[2020-07-17] MEDS ORDERED: ACETAMINOPHEN 325 MG TAB PO ONE (11:31)
[2020-07-17 11:57] VITALS: TEMP 97.8
[2020-07-17 12:04] VITALS: BP 134/75; O2SAT 99
== END 2020-07-17 12:40 | disposition short-term general hospital (02) ==
LOC: ER 07:19
DX: O98.512 Other viral diseases complicating pregnancy, second trimester (principal); O60.12X0 Preterm labor second trimester with preterm delivery second trimester, not applicable or unspecified; O30.002 Twin pregnancy, unspecified number of placenta and unspecified number of amniotic sacs, second trimester; O99.52 Diseases of the respiratory system complicating childbirth; J45.909 Unspecified asthma, uncomplicated; Z3A.26 26 weeks gestation of pregnancy; Z37.4 Twins, both stillborn
CPT/HCPCS: 36415; 76815; 80053; 84702; 85025; 85610; 85730; 87635; J3010